=== PATIENT | female | born 1960 | race Caucasian/White ===

== ENCOUNTER 2017-10-08 13:40 | Outpatient (RCR) | payer SELFPAY ==
[~2017-10-08 13:40] MED LIST: BIOT1TAB12 PO; CHOL200059; CINN500C12 PO; CRAN200C5 PO; CYAN250013; LEVO150T9 PO; MAGN100T PO; METF-410 PO
[2017-10-08 14:00] VITALS: BP 129/76
--- NOTE | 2017-10-09 05:13 | [facility] ONCOLOGY NOTE ---
EVENT DATE: October 08, 2017 DIAGNOSES 1. Left thyroid lobe follicular carcinoma. 2. Pulmonary typical carcinoid tumor. REASON FOR THE CONSULTATION Evaluation and management of progressing pulmonary nodules by CT scan. HISTORY OF PRESENT ILLNESS The patient is a 57-year-old [place] lady who had a goiter for the past seventeen years, which got much larger and quite massive. She has had significant pressure symptoms with raspy voice, mild stridor. In 2013, the patient had an ultrasound which showed a massive multinodular goiter and her TSH was normal. Fine needle aspiration was benign at that time. She had a CT of neck done recently on June 02, 2016, and it showed multinodular goiter. The mass was 16.3 x 11.6 x 15.1 cm. The mass deviates the airway to the right. It compresses the trachea to a minimum diameter of 2.2 x 0.7 cm at the level of the thoracic inlet. The mass also effaces the internal jugular vein on the left side with numerous venous varices present inferior and lateral to the mass. The common and internal carotid arteries are deviated posteriorly. The sternocleidomastoid muscle was also deviated posteriorly. CT of chest done on June 02, 2016 did reveal the large neck mass as described in the CT of neck. There were several bilateral noncalcified solid pulmonary nodules, nonspecific, but worrisome for metastatic disease. The patient ended by having subtotal thyroidectomy with total left lobectomy done on June 02, 2016, and the pathology came back positive for follicular carcinoma with capsular and vascular invasion. 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 The patient received iodine-131 and extended beam radiation therapy, and she achieved complete remission. She had a biopsy in [place] for one of the pulmonary nodules done on July 31, 2016, and the pathology came back positive for typical carcinoid tumor, well-differentiated neuroendocrine neoplasm, low-grade. Patient had recent CT scan done on August 14, 2017, and it showed that the pulmonary nodules demonstrate minor progression. The largest was 2.6 x 2.1 cm, which is growing from the previous scan, which was 1.6 x 1.5 cm. PAST MEDICAL HISTORY 1. 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 2. Pulmonary carcinoid (neuroendocrine, low-grade). 3. Gallstones. 4. Vitiligo. 5. Diabetes mellitus. PAST SURGICAL HISTORY Thyroid left lobectomy done on June 02, 2016. FAMILY HISTORY Negative for cancer or blood diseases. SOCIAL HISTORY The patient is with one son. 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 Denies any abuse of tobacco, alcohol or drugs. CURRENT MEDICATIONS 1. Biotin 1 mg daily. 2. Levothyroxine 150 mcg daily. 3. Cranberry 200 mg daily. 4. Cinnamon bark 500 mg daily. 5. Vitamin D3 daily. 6. Magnesium 100 mg daily. 7. Vitamin B12 daily. ALLERGIES No known drug allergies. REVIEW OF SYSTEMS CONSTITUTIONAL: No appetite or weight change. No fever, chills or sweating. No recent infection. HEENT: Ears: No tinnitus or hearing problem. Nose: No nasal discharge or epistaxis. Throat: No sore throat or mouth ulcers. Eyes: No diplopia or visual changes. RESPIRATORY: No shortness of breath. No cough, expectoration or hemoptysis. CARDIOVASCULAR: No chest pain, orthopnea, or paroxysmal nocturnal dyspnea (PND) . No edema. No palpitations. GASTROINTESTINAL: No nausea or vomiting. No diarrhea or constipation. No change in bowel movements. No heartburn or swallowing difficulties. No abdominal pain. No jaundice. No hematemesis, melena or rectal bleeding. GENITOURINARY: No hematuria or dysuria. MUSCULOSKELETAL: No pain in the muscles, joints or bones. NEUROLOGICAL: She has sinus headaches sometimes. HEMATOLOGIC/LYMPHATIC: No bleeding or easy bruising. No weakness or fatigued. No enlarged lymph nodes. SKIN: No skin rash or lumps. PSYCHIATRIC: No anxiety or depression. PHYSICAL EXAMINATION GENERAL: Looks stable. Well-developed, well-nourished, and in no acute distress. VITAL SIGNS: Blood pressure 129/76, pulse 87 per minute, respirations 16 per minute, temperature 97.1, pulse oximetry 90% on room air. HEENT: Head: Atraumatic. No sinus tenderness to palpation. Eyes: No icterus or conjunctivitis. Mouth and throat: No oral thrush or mucositis. NECK: Supple. No cervical or supraclavicular lymphadenopathy. LUNGS: Clear to auscultation and percussion bilaterally. HEART: Regular rate and rhythm. No gallops, murmurs, clicks or rubs. ABDOMEN: Soft and lax. No tenderness. No hepatosplenomegaly. No masses. EXTREMITIES: No cyanosis, clubbing or edema. LYMPHATICS: No peripheral lymphadenopathy. NEUROLOGICAL: Conscious, alert and oriented times three. No focal motor or sensory deficits. PSYCHIATRIC: Mood and affect appear normal. SKIN: No skin rash, bruise or purpuric eruption. ASSESSMENT 1. Follicular carcinoma of the left lobe of the thyroid status post complete left lobectomy of the thyroid done June 02, 2016. Patient received iodine- 131 and extended beam radiation therapy, and she achieved complete remission. Patient is followed by Dr. Christine for that. 2. Pulmonary nodules due to typical carcinoid, low-grade, status post CT- guided biopsy of the left lower lobe nodule done on July 31, 2016, and the pathology came back positive for well-differential neuroendocrine neoplasm, low- grade (typical carcinoid). Patient had a recent CT chest done on August 14, 2017, which showed growth of the pulmonary nodules. One of them actually increased from 1.6 x 1.5 cm and currently 2.6 x 2.1 cm. This is actually not consistent with typical carcinoid to that growth in a year, and most probably there will be an element of atypical carcinoid in that nodule, and for this reason, as the patient also is very conservative about having any procedure or treatment, so I am planning to see her again in four months from now with another CT chest with contrast, and if this nodule continues to grow, then I will biopsy it, and further evaluation and management will depend on the result. I spent a long time with the patient explaining that, and she is agreeable with the plan of management. 3. Hyperglycemia. She was on metformin in the past. 4. History of gallstones. 5. Vitiligo. PLAN 1. Continue follow up. 2. Patient to return in four months with CBC, Chem panel and CT chest with IV contrast. 3. Patient to contact us for any new concerns or complaints. ADRIANO
== END 2017-10-23 09:36 | disposition home or self-care (01) ==
LOC: ONC 13:40
PROVIDERS: ATTEND Internal Medicine Hematology
DX: Z85.850 Personal history of malignant neoplasm of thyroid (principal); E04.1 Nontoxic single thyroid nodule; R73.9 Hyperglycemia, unspecified; L80 Vitiligo; Z79.899 Other long term (current) drug therapy
CPT/HCPCS: 99202

== ENCOUNTER → 2018-05-21 | Outpatient (REF) ==
[~2018-05-21] MED LIST changes: +IOPAMIDOL 76% 75 ML INFUS BTL 75 ML ONE; -METF-410 PO; +METF-411 PO
--- NOTE | 2018-05-21 10:55 | RADIOLOGY IMAGING REPORT ---
FACILITY: [facility] - [place] PATIENT NAME: Rosanna Cardenas : 1960 MR: [id number] V: [id number] EXAM DATE: ORDERING PHYSICIAN: KWAME BRICEÑO TECHNOLOGIST: Location: [facility] [place] Patient: Rosanna Cardenas : 1960 Visit/Account:[id number] Date of Sevice: 05/21/2018 CHEST W CONTRAST History: Pulmonary nodules TECHNIQUE: Contiguous axial images were performed through the chest to the level of the adrenal gla nds following the administration of IV contrast. Coronal and sagittal reformatting was also perform ed. Dose Lowering Technique One of the following dose optimization techniques was utilized in the performance of this exam: Autom ated exposure control; adjustment of the mA and/or kV according to the patient's size; or use of an i terative reconstruction technique. Specific details can be referenced in the facility's radiology C T exam operational policy. Contrast: 75 mL [id number] COMPARISON STUDIES: CT chest August 14, 2017. Lungs / Pleura: Again noted are multiple bilateral noncalcified pulmonary nodules. Most of these n odules have increased in size. Anteromedial right upper lobe nodule measures 7.4 mm as opposed to 5 mm previously (image 93 of seri es 4) A posterior right upper lobe not nodule now measures 9 mm as opposed to 7 mm previously (image 136). An inferior medial right upper lobe nodule previously measured 3.8 mm now measuring 8.3 mm (image 164 ) A medial right middle lobe nodule measures 1 cm as opposed to 6.8 mm previously (image 203) An anteromedial right middle lobe nodule measures 1 cm previously measuring 5.6 mm (image 212) Enlarging left lower lobe pulmonary nodules again seen. The largest measuring 3 x 2.3 cm previously 2.6 x 2.1 cm An anterior left upper lobe pulmonary nodule now measures 7.3 mm as opposed to 4 mm previously (image 124) A 3 mm medial left upper lobe pulmonary nodule previously measured 1 mm. (Series image 99) Mediastinum/nodes: negative. Heart and vessels: Ascending thoracic aortic aneurysm now measures 4.2 cm in diameter slightly incre ased when compared to the prior study Musculoskeletal / Body wall: Fibrotic stranding in the left side of the neck is likely postsurgical . There is nodular soft tissue thickening adjacent to the anterior aspect of the trachea measuring a pproximately 2.1 x 1.1 x 1.7 cm appears slightly more prominent when compared the prior study may rep resent scar tissue although a local tumor recurrence not excluded. Incompletely imaged is a 1.9 x 1. 4 cm nodular density in the left submental region which may represent a level one lymph node versus v olume averaging of adjacent musculature and additional smaller lymph nodes. This area was not imaged on the prior study There are spondylotic changes of the thoracic spine Upper abdomen: Cholelithiasis although no evidence of biliary ductal dilatation. Upper pole right renal cyst IMPRESSION: Multiple noncalcified pulmonary nodules are seen throughout the lungs most of which have increased in size when compared the prior study. Stranding of the soft tissues base of the left-sided the neck is probably postsurgical in nature. Th ere is a soft tissue nodule present just anterior to the trachea which may represent scar tissue vers us local tumor recurrence. Incompletely imaged is a 1.9 x 1.4 cm nodular area on the left submental region which may represent v olume averaging from an adjacent muscle versus a level one lymph node. Smaller level one lymph nodes are noted just inferiorly. Cholelithiasis Report Dictated By: Sariah Corbin MD at 05/21/2018 10:14 AM Report E-Signed By: Sariah Corbin MD at 05/21/2018 10:51 AM WSN:[id number]
== END ==
LOC: CT 00:33
PROVIDERS: ATTEND Nurse Practitioner
DX: R91.8 Other nonspecific abnormal finding of lung field (principal)
CPT/HCPCS: 71260; Q9967